=== PATIENT | female | born 1970 | race Caucasian/White ===

== ENCOUNTER 2021-02-13 17:11 | Emergency (ER) | payer BC, OTHER ==
[~2021-02-13] VITALS: Ht 167.6 cm; Wt 77.1 kg
[2021-02-13 17:47] LABS: ABSOLUTE NEUTROPHILS 3.6 thou/uL (1.4-8.2); BASOPHILS 0.5 % (0.0-2.0); EOSINOPHILS 1.3 % (0.0-3.0); HEMATOCRIT 41.3 % (37.0-47.0); HEMOGLOBIN 14.1 gm/dL (12.0-15.0); LYMPHOCYTES 35.2 % (24.0-44.0); MCH 30.3 pg (26.0-34.0); MCHC 34.2 g/dL (28.0-37.0); MCV 88.7 fL (80.0-100.0); PLATELET COUNT 180 thou/uL (150-400); RBC 4.65 mil/uL (4.20-5.00); WBC 6.4 thou/uL (4.0-11.0)
[2021-02-13 17:50] LABS: URINE BILIRUBIN NEGATIVE (Negative); URINE BLOOD NEGATIVE (Negative); URINE CLARITY SL CLOUDY; URINE COLOR YELLOW; URINE GLUCOSE-RANDOM* NEGATIVE (Negative); URINE KETONES TRACE (Negative); URINE LEUKOCYTES-REFLEX NEGATIVE (Negative); URINE NITRITE-REFLEX NEGATIVE (Negative); URINE PROTEIN (DIPSTICK) NEGATIVE (Negative); URINE SPECIFIC GRAVITY >= 1.030 (1.005-1.035); URINE UROBILINOGEN 0.2 E.U./dl (0.2-1.0)
[2021-02-13 18:08] LABS: CALCIUM 9.3 mg/dL (8.5-10.1); CREATININE 1.1 mg/dL (0.6-1.0); POTASSIUM 3.8 mmol/L (3.5-5.1)
[2021-02-13] MEDS ORDERED: FLOMAX0.4 MG PO (19:02)
[2021-02-13] MEDS ORDERED: ONDANSETRON HCL4 M2 PO (19:02)
[2021-02-13] MEDS ORDERED: HYDROCODON-ACE1 EAC7 PO (19:02)
[2021-02-13 19:22] VITALS: BP 117/54
== END 2021-02-13 19:22 | disposition home or self-care (01) ==
LOC: ER 17:11
PROVIDERS: Nurse Practitioner
DX: N20.0 Calculus of kidney (principal)